=== PATIENT | male | born 1990 | race Caucasian/White ===

== ENCOUNTER 2016-12-13 14:20 | Emergency (ER) | payer SELFPAY ==
[~2016-12-13] VITALS: Wt 95.3 kg
[~2016-12-13 14:20] MED LIST: BACTRIM DS 8001 TA1 PO; CEPHALEXIN500 M1 PO; FLEXERIL10 MG PO; HYDROCODONE BIT1 T11 PO; KEFLEX500 M1 PO; NAPROSYN500 MG PO; ZANTAC150 MG PO
[2016-12-13 14:52] LABS: BASO % 0.4 % (0.0-1.0); EOS # 0.2 10*3/uL (0.0-0.4); EOS % 2.5 % (1.0-4.0); HEMATOCRIT 43.6 % (42.0-52.0); HEMOGLOBIN 15.2 g/dl (14.0-18.0); LYMPH # 2.8 10*3/uL (1.3-4.4); LYMPH % 34.1 % (27.0-41.0); MEAN CELL VOLUME 83.5 fl (80.0-94.0); MEAN CORPUSCULAR HGB 29.1 pg (27.0-31.0); MEAN CORPUSCULAR HGB CONC 34.9 g/dl (33.0-37.0); MEAN PLATELET VOLUME 10.4 fl (9.6-12.3); MONO # 0.6 10*3/uL (0.1-1.0); MONO % 7.5 % (3.0-9.0); NEUT # 4.5 10*3/uL (2.3-7.9); NEUT % 55.3 % (47.0-73.0); PLATELET COUNT AUTOMATED 261 10*3/uL (130-400); RED BLOOD COUNT 5.22 10*6/uL (4.50-5.90); RED CELL DISTRI WIDTH 12.6 % (0-14.5); WHITE BLOOD COUNT 8.2 10*3/uL (4.8-10.8)
[2016-12-13 15:11] LABS: ALBUMIN 4.2 gm/dl (3.1-4.5); ALKALINE PHOSPHATASE 78 U/L (45-117); BILIRUBIN, TOTAL 0.4 mg/dl (0.2-1.0); BUN 17 mg/dl (7-24); CARBON DIOXIDE 26 mmol/L (21-32); CHLORIDE 107 mmol/L (98-107); EST GLOM FILT AFRICAN AMERICAN > 60 ml/min; GLUCOSE 101 mg/dL (65-99); POTASSIUM 3.8 mmol/L (3.5-5.1); SGOT/AST 32 IU/L (3-35); SGPT/ALT 35 U/L (12-78); SODIUM 144 mmol/L (136-145); TOTAL PROTEIN 7.8 gm/dL (6.4-8.2)
== END 2016-12-13 14:58 | disposition short-term general hospital (02) ==
LOC: ED 14:20
PROVIDERS: Nurse Practitioner Family
DX: T20.36XA Burn of third degree of forehead and cheek, initial encounter (principal); T20.32XA Burn of third degree of lip(s), initial encounter; X08.8XXA Exposure to other specified smoke, fire and flames, initial encounter; Y93.89 Activity, other specified; Y92.9 Unspecified place or not applicable; Y99.9 Unspecified external cause status; F17.200 Nicotine dependence, unspecified, uncomplicated

== ENCOUNTER → 2019-08-27 | Outpatient (CLI) | payer OTHER ==
[2019-08-27 08:45] LABS: BASO % 0.5 % (0.0-1.0); EOS # 0.2 10*3/uL (0.0-0.4); EOS % 2.6 % (1.0-4.0); HEMATOCRIT 46.7 % (42.0-52.0); HEMOGLOBIN 15.8 g/dl (14.0-18.0); LYMPH # 3.1 10*3/uL (1.3-4.4); LYMPH % 38.7 % (27.0-41.0); MEAN CELL VOLUME 85.8 fl (80.0-94.0); MEAN CORPUSCULAR HGB CONC 33.8 g/dl (33.0-37.0); MONO # 0.7 10*3/uL (0.1-1.0); PLATELET COUNT AUTOMATED 255 10*3/uL (130-400); RED BLOOD COUNT 5.44 10*6/uL (4.50-5.90); RED CELL DISTRI WIDTH 12.5 % (0-14.5); WHITE BLOOD COUNT 8.1 10*3/uL (4.8-10.8)
[2019-08-27 09:22] LABS: ALBUMIN 4.1 gm/dl (3.1-4.5); ALKALINE PHOSPHATASE 78 U/L (45-117); BILIRUBIN, DIRECT 0.1 mg/dL (0.0-0.2); BUN 15 mg/dl (7-24); CHLORIDE 107 mmol/L (98-107); CHOLESTEROL 220 mg/dL (<200); HDL CHOLESTEROL 42 mg/dl (40-60); LDL CHOLESTEROL 140 mg/dL (9-159); POTASSIUM 4.2 mmol/L (3.5-5.1); SGOT/AST 22 IU/L (3-35); SGPT/ALT 56 U/L (12-78); SODIUM 141 mmol/L (136-145); THYROXINE (T4) TOTAL 7.7 ug/dl (4.5-12.1); TOTAL PROTEIN 7.8 gm/dL (6.4-8.2); TRIGLYCERIDES 191 mg/dl (<150); VLDL CHOLESTEROL 38 mg/dL (6-40)
== END | disposition home or self-care (01) ==
LOC: LAB 08:30
PROVIDERS: Family Medicine
DX: Z00.00 Encounter for general adult medical examination without abnormal findings (principal)

== ENCOUNTER 2020-04-12 11:35 | Emergency (ER) | payer OTHER ==
[~2020-04-12] VITALS: Ht 177.8 cm; Wt 90.7 kg
[2020-04-12] MEDS ORDERED: FLONASE ALLERG9.9 ML NAS (13:24)
[2020-04-12] MEDS ORDERED: ZYRTEC10 M3 PO (13:24)
== END 2020-04-12 13:17 | disposition home or self-care (01) ==
LOC: ED 11:35
DX: J01.90 Acute sinusitis, unspecified (principal)

== ENCOUNTER → 2021-05-27 | Outpatient (CLI) | payer BC ==
[~2021-05-27] MED LIST changes: +FLONASE ALLERG9.9 ML NAS; +ZYRTEC10 M3 PO
== END | disposition home or self-care (01) ==
LOC: COVID19 15:58
PROVIDERS: ATTEND Internal Medicine
DX: Z11.52 Encounter for screening for COVID-19 (principal)

== ENCOUNTER → 2021-09-03 | Outpatient (CLI) | payer BC | END | disposition home or self-care (01) | LOC: COVID19 16:49 | PROVIDERS: ATTEND Internal Medicine | DX: Z11.52 Encounter for screening for COVID-19 (principal) ==